=== PATIENT | female | born 1945 | race Two or more races ===

== ENCOUNTER 2025-04-18 11:53 | Emergency (ER) | payer MEDICARE, OTHER ==
[~2025-04-18] VITALS: Ht 167.6 cm; Wt 80.3 kg
[2025-04-18 12:06] VITALS: BP 142/97
[2025-04-18] MEDS ORDERED: ROSU10TA2 PO (12:14)
[2025-04-18] MEDS ORDERED: EZET10TA15 PO (12:14)
[2025-04-18] MEDS ORDERED: METOCLOPRAMIDE HCL 10 MG/2 ML VIAL ONE (12:50)
[2025-04-18] MEDS: METOCLOPRAMIDE HCL 10 MG/2 ML VIAL IM ONE (12:55)
[2025-04-18 15:07] VITALS: BP 132/89; TEMP 98; O2SAT 97
== END 2025-04-18 15:08 | disposition home or self-care (01) ==
LOC: ER 12:07
DX: R05.9 Cough, unspecified (principal); G43.809 Other migraine, not intractable, without status migrainosus; E78.5 Hyperlipidemia, unspecified; K21.9 Gastro-esophageal reflux disease without esophagitis; Z79.899 Other long term (current) drug therapy; Z86.69 Personal history of other diseases of the nervous system and sense organs; R42 Dizziness and giddiness
CPT/HCPCS: 99285; 70450; 96372; J2765; A4606; A4663